=== PATIENT | male | born 1965 | race Two or more races ===

== ENCOUNTER → 2017-06-18 | Outpatient (CLI) | payer OTHER ==
[2017-06-18] MEDS: GADOBUTROL 7.5 MMOL/7.5 ML VIAL INT ART (14:16)
[2017-06-18] MEDS: LIDOCAINE 1% Multi-Dose 20 ML VIAL. ID (14:16)
[2017-06-18] MEDS: IOHEXOL 300 MG/ML 50 ML VIAL. INT ART (14:16)
== END | disposition home or self-care (01) ==
LOC: KCIC 13:26
DX: M65.841 Other synovitis and tenosynovitis, right hand (principal); M25.531 Pain in right wrist
CPT/HCPCS: 73115; 73222; A9585; Q9967